=== PATIENT | female | born 1995 | race Two or more races ===

== ENCOUNTER 2018-07-22 19:12 | Emergency (ER) | payer MEDICAID ==
[~2018-07-22] VITALS: Ht 152.4 cm; Wt 50.8 kg
[~2018-07-22 19:12] MED LIST: ACE650RS; ASPITAB34; BUTACAP; IBU600T
[2018-07-22 20:04] VITALS: BP 127/78
[2018-07-22] MEDS ORDERED: methylPREDNISolone SOD SUCC 125 MG/2 ML VL IM ONE (22:30)
[2018-07-22] MEDS ORDERED: diphenhdrAMINE HCL 50 MG/1 ML VL IM ONE (23:30)
== END 2018-07-23 00:12 | disposition home or self-care (01) ==
LOC: ER 19:12
DX: T78.1XXA Other adverse food reactions, not elsewhere classified, initial encounter (principal); R21 Rash and other nonspecific skin eruption; Z79.82 Long term (current) use of aspirin; X58.XXXA Exposure to other specified factors, initial encounter
CPT/HCPCS: 96372; 99283; J1200; J2930

== ENCOUNTER 2019-07-07 10:36 | Observation (INO) | payer MEDICAID | END 2019-07-07 11:30 | disposition home or self-care (01) | DRG 566 | LOC: LDRP 10:36 | PROVIDERS: ADMIT Specialist; ATTEND Specialist | DX: O9A.212 Injury, poisoning and certain other consequences of external causes complicating pregnancy, second trimester (principal); O26.893 Other specified pregnancy related conditions, third trimester; M25.559 Pain in unspecified hip; R10.9 Unspecified abdominal pain; O99.89 Other specified diseases and conditions complicating pregnancy, childbirth and the puerperium; Z3A.23 23 weeks gestation of pregnancy; W18.09XA Striking against other object with subsequent fall, initial encounter; Y93.89 Activity, other specified; Y92.89 Other specified places as the place of occurrence of the external cause | CPT/HCPCS: 59025; 81002; G0378 ==